=== PATIENT | male | born 1940 | race Caucasian/White ===

== ENCOUNTER 2018-02-14 12:00 | Inpatient (IN) | payer MEDICARE, OTHER ==
[2018-02-14] MEDS ORDERED: SODIUM CHLORIDE 0.9% 1,000 ML IV STA ×4 (12:21→21:45)
[2018-02-14] MEDS ORDERED: SODIUM CHLORIDE 0.9% 500 ML IV STA (12:21)
[2018-02-14 12:42] LABS: Basophils % (A) 0 %; Eosinophils # (A) 0.1 k/uL (0-0.7); Eosinophils % (A) 1 %; HCT 30.5 % (39.0-53.0); Lymphocytes # (A) 0.6 k/uL (1.0-4.8); Lymphocytes % (A) 5 %; MCH 30.6 pg (25.0-35.0); MCHC 33.7 g/dL (31.0-37.0); MCV 90.7 fL (80.0-100.0); Mean Platelet Volume 8.4; Monocytes # (A) 0.6 k/uL (0-1.0); Monocytes % (A) 5 %; Neutrophils # (A) 10.5 k/uL (1.3-7.7); Neutrophils % (A) 88 %; Platelet Count 142 k/uL (150-450); RBC 3.36 m/uL (4.30-5.90); RDW 13.9 % (11.5-15.5)
[2018-02-14 12:53] LABS: ALT 25 U/L (21-72); AST 26 U/L (17-59); Albumin 3.5 g/dL (3.5-5.0); Alkaline Phosphatase 86 U/L (38-126); Amylase 59 U/L (30-110); Anion Gap 18 mmol/L; Blood Urea Nitrogen 41 mg/dL (9-20); Calcium 8.7 mg/dL (8.4-10.2); Carbon Dioxide 17 mmol/L (22-30); Chloride 115 mmol/L (98-107); Glucose 138 mg/dL (74-99); Lipase 149 U/L (23-300); Potassium 4.4 mmol/L (3.5-5.1); Sodium 150 mmol/L (137-145); Total Bilirubin 0.5 mg/dL (0.2-1.3); Total Protein 6.9 g/dL (6.3-8.2)
[2018-02-14 12:57] LABS: HGB 10.3 gm/dL (13.0-17.5)
[2018-02-14 13:03] LABS: Creatine Kinase 98 U/L (55-170)
--- NOTE | 2018-02-14 13:14 | ED ---
Abdominal Pain HPI - General Chief Complaint: Abdominal Pain Stated Complaint: Abd pain Time Seen by Provider: 02/14/18 12:00 Source: EMS, RN notes reviewed, old records reviewed Mode of arrival: EMS Limitations: language barrier, altered mental status, physical limitation - History of Present Illness Initial Comments: This is a 77-year-old male from a local [facility] who was sent in for evaluation because of diminished breath sounds auscultation and pink frothy phlegm apparently per paramedics however patient did seem indicated that he had abdominal pain he is a poor historian he has a history of anxiety disorder major depression CVA expressive language disorder and hence is a poor historian MD Complaint: abdominal pain - Related Data Home Medications Medication Instructions Recorded Confirmed Ascorbic Acid [Vitamin C] 500 mg PO HS 06/15/15 02/14/18 Cholecalciferol [Vitamin D3] 3,000 unit PO HS 06/15/15 02/14/18 Vitamin B Complex 1 cap PO HS 06/15/15 02/14/18 Acetaminophen [Tylenol Arthritis] 650 mg PO Q6H PRN 02/14/18 02/14/18 Aspirin 81 mg PO DAILY 02/14/18 02/14/18 Atorvastatin [Lipitor] 40 mg PO HS 02/14/18 02/14/18 Hydrocortisone Cream 1 applic TOPICAL BID PRN 02/14/18 02/14/18 [Hydrocortisone 1% Cream] Loratadine [Claritin] 10 mg PO DAILY PRN 02/14/18 02/14/18 Miconazole Nitrate [Lotrimin AF 1 applic TOPICAL TID 02/14/18 02/14/18 Powder] Mirtazapine [Remeron] 15 mg PO HS 02/14/18 02/14/18 Phenyleph/Pramoxin/Glycr/W.pet 1 applic RECTAL DAILY PRN 02/14/18 02/14/18 [Preparation H Cream] Polyethylene Glycol 3350 [Miralax] 17 gm PO HS 02/14/18 02/14/18 Sertraline [Zoloft] 50 mg PO DAILY@0800 02/14/18 02/14/18 Allergies Allergy/AdvReac Type Severity Reaction Status Date / Time No Known Allergies Allergy Verified 02/14/18 12:19 Review of Systems ROS Statement: Those systems with pertinent positive or pertinent negative responses have been documented in the HPI. ROS Other: All systems not noted in ROS Statement are negative. Past Medical History Past Medical History: Eye Disorder, Hypertension, Neurologic Disorder Additional Past Medical History / Comment(s): unable to speak or comprehend, comprehends at 3rd grade level per family, vertigo History of Any Multi-Drug Resistant Organisms: None Reported Past Surgical History: No Surgical Hx Reported Additional Past Surgical History / Comment(s): cataract surgery Past Anesthesia/Blood Transfusion Reactions: No Reported Reaction Past Psychological History: No Psychological Hx Reported Smoking Status: Never smoker Past Alcohol Use History: None Reported Past Drug Use History: None Reported - Past Family History Sister(s) Family Medical History: Cancer Additional Family Medical History / Comment(s): lung cancer Brother(s) Family Medical History: Cancer Additional Family Medical History / Comment(s): esophageal cancer, cerebral palsy Father Family Medical History: Myocardial Infarction ([place]) General Exam - General Exam Comments Initial Comments: This is a well-developed well-nourished male in no acute distress Limitations: language barrier, altered mental status, physical limitation General appearance: alert, in no apparent distress Head exam: Present: atraumatic, normocephalic, normal inspection Eye exam: Present: normal appearance, PERRL, EOMI. Absent: scleral icterus, conjunctival injection, periorbital swelling ENT exam: Present: mucous membranes dry Neck exam: Present: normal inspection. Absent: tenderness, meningismus, lymphadenopathy Respiratory exam: Present: decreased breath sounds. Absent: respiratory distress, wheezes, rales, rhonchi, stridor Cardiovascular Exam: Present: regular rate, normal rhythm, normal heart sounds. Absent: systolic murmur, diastolic murmur, rubs, gallop, clicks GI/Abdominal exam: Present: soft, tenderness, normal bowel sounds. Absent: distended, guarding, rebound, rigid, bruit (Tenderness palpation and Gen. exam no rebound there does appear to be some voluntary guarding), pulsatile mass, hernia Rectal exam: Present: deferred exam: Present: normal inspection Extremities exam: Present: normal inspection, full ROM, normal capillary refill. Absent: tenderness, pedal edema, joint swelling, calf tenderness Back exam: Present: normal inspection Neurological exam: Present: alert, altered, CN II-XII intact Psychiatric exam: Present: normal affect, normal mood Skin exam: Present: warm, dry, intact, normal color. Absent: rash Course Vital Signs 02/14/18 02/14/18 12:08 15:13 Temperature 98.1 F Pulse Rate 86 68 Respiratory 18 20 Rate Blood Pressure 169/83 117/63 O2 Sat by Pulse 99 96 Oximetry Medical Decision Making - Medical Decision Making I did discuss findings with patient family as well as Dr. Tucker. Patient be admitted IV hydration IV antibiotics the elevated lactic acid is likely secondary to dehydration and onto actual infectious etiology. No source is found has been found - Lab Data Result diagrams: 02/14/18 12:24 02/14/18 12:24 Lab Results 02/14/18 02/14/18 02/14/18 Range/Units 12:24 12:24 12:24 WBC 12.0 H (3.8-10.6) k/uL RBC 3.36 L (4.30-5.90) m/uL Hgb 10.3 L D (13.0-17.5) gm/dL Hct 30.5 L (39.0-53.0) % MCV 90.7 (80.0-100.0) fL MCH 30.6 (25.0-35.0) pg MCHC 33.7 (31.0-37.0) g/dL RDW 13.9 (11.5-15.5) % Plt Count 142 L (150-450) k/uL Neutrophils % 88 % Lymphocytes % 5 % Monocytes % 5 % Eosinophils % 1 % Basophils % 0 % Neutrophils # 10.5 H (1.3-7.7) k/uL Lymphocytes # 0.6 L (1.0-4.8) k/uL Monocytes # 0.6 (0-1.0) k/uL Eosinophils # 0.1 (0-0.7) k/uL Basophils # 0.0 (0-0.2) k/uL Sodium 150 H (137-145) mmol/L Potassium 4.4 (3.5-5.1) mmol/L Chloride 115 H (98-107) mmol/L Carbon Dioxide 17 L (22-30) mmol/L Anion Gap 18 mmol/L BUN 41 H (9-20) mg/dL Creatinine 0.69 (0.66-1.25) mg/dL Est GFR (CKD-EPI)AfAm >90 (>60 ml/min/1.73 sqM) Est GFR (CKD-EPI)NonAf >90 (>60 ml/min/1.73 sqM) Glucose 138 H (74-99) mg/dL Lactic Ac Sepsis Rflx Plasma Lactic Acid Ulysses (0.7-2.0) mmol/L Calcium 8.7 (8.4-10.2) mg/dL Total Bilirubin 0.5 (0.2-1.3) mg/dL AST 26 (17-59) U/L ALT 25 (21-72) U/L Alkaline Phosphatase 86 (38-126) U/L Total Creatine Kinase 98 (55-170) U/L CK-MB (CK-2) 0.9 (0.0-2.4) ng/mL CK-MB (CK-2) Rel Index 0.9 Troponin I <0.012 (0.000-0.034) ng/mL NT-Pro-B Natriuret Pep pg/mL Total Protein 6.9 (6.3-8.2) g/dL Albumin 3.5 (3.5-5.0) g/dL Amylase 59 (30-110) U/L Lipase 149 (23-300) U/L Urine Color Urine Appearance (Clear) Urine pH (5.0-8.0) Ur Specific [place] (1.001-1.035) Urine Protein (Negative) Urine Glucose (UA) (Negative) Urine Ketones (Negative) Urine Blood (Negative) Urine Nitrite (Negative) Urine Bilirubin (Negative) Urine Urobilinogen (<2.0) mg/dL Ur Leukocyte Esterase (Negative) 02/14/18 02/14/18 02/14/18 Range/Units 12:24 12:24 13:03 WBC (3.8-10.6) k/uL RBC (4.30-5.90) m/uL Hgb (13.0-17.5) gm/dL Hct (39.0-53.0) % MCV (80.0-100.0) fL MCH (25.0-35.0) pg MCHC (31.0-37.0) g/dL RDW (11.5-15.5) % Plt Count (150-450) k/uL Neutrophils % % Lymphocytes % % Monocytes % % Eosinophils % % Basophils % % Neutrophils # (1.3-7.7) k/uL Lymphocytes # (1.0-4.8) k/uL Monocytes # (0-1.0) k/uL Eosinophils # (0-0.7) k/uL Basophils # (0-0.2) k/uL Sodium (137-145) mmol/L Potassium (3.5-5.1) mmol/L Chloride (98-107) mmol/L Carbon Dioxide (22-30) mmol/L Anion Gap mmol/L BUN (9-20) mg/dL Creatinine (0.66-1.25) mg/dL Est GFR (CKD-EPI)AfAm (>60 ml/min/1.73 sqM) Est GFR (CKD-EPI)NonAf (>60 ml/min/1.73 sqM) Glucose (74-99) mg/dL Lactic Ac Sepsis Rflx Y Plasma Lactic Acid Ulysses 4.6 H* (0.7-2.0) mmol/L Calcium (8.4-10.2) mg/dL Total Bilirubin (0.2-1.3) mg/dL AST (17-59) U/L ALT (21-72) U/L Alkaline Phosphatase (38-126) U/L Total Creatine Kinase (55-170) U/L CK-MB (CK-2) (0.0-2.4) ng/mL CK-MB (CK-2) Rel Index Troponin I (0.000-0.034) ng/mL NT-Pro-B Natriuret Pep 154 pg/mL Total Protein (6.3-8.2) g/dL Albumin (3.5-5.0) g/dL Amylase (30-110) U/L Lipase (23-300) U/L Urine Color Urine Appearance (Clear) Urine pH (5.0-8.0) Ur Specific [place] (1.001-1.035) Urine Protein (Negative) Urine Glucose (UA) (Negative) Urine Ketones (Negative) Urine Blood (Negative) Urine Nitrite (Negative) Urine Bilirubin (Negative) Urine Urobilinogen (<2.0) mg/dL Ur Leukocyte Esterase (Negative) 02/14/18 Range/Units 13:46 WBC (3.8-10.6) k/uL RBC (4.30-5.90) m/uL Hgb (13.0-17.5) gm/dL Hct (39.0-53.0) % MCV (80.0-100.0) fL MCH (25.0-35.0) pg MCHC (31.0-37.0) g/dL RDW (11.5-15.5) % Plt Count (150-450) k/uL Neutrophils % % Lymphocytes % % Monocytes % % Eosinophils % % Basophils % % Neutrophils # (1.3-7.7) k/uL Lymphocytes # (1.0-4.8) k/uL Monocytes # (0-1.0) k/uL Eosinophils # (0-0.7) k/uL Basophils # (0-0.2) k/uL Sodium (137-145) mmol/L Potassium (3.5-5.1) mmol/L Chloride (98-107) mmol/L Carbon Dioxide (22-30) mmol/L Anion Gap mmol/L BUN (9-20) mg/dL Creatinine (0.66-1.25) mg/dL Est GFR (CKD-EPI)AfAm (>60 ml/min/1.73 sqM) Est GFR (CKD-EPI)NonAf (>60 ml/min/1.73 sqM) Glucose (74-99) mg/dL Lactic Ac Sepsis Rflx Plasma Lactic Acid Ulysses (0.7-2.0) mmol/L Calcium (8.4-10.2) mg/dL Total Bilirubin (0.2-1.3) mg/dL AST (17-59) U/L ALT (21-72) U/L Alkaline Phosphatase (38-126) U/L Total Creatine Kinase (55-170) U/L CK-MB (CK-2) (0.0-2.4) ng/mL CK-MB (CK-2) Rel Index Troponin I (0.000-0.034) ng/mL NT-Pro-B Natriuret Pep pg/mL Total Protein (6.3-8.2) g/dL Albumin (3.5-5.0) g/dL Amylase (30-110) U/L Lipase (23-300) U/L Urine Color Yellow Urine Appearance Clear (Clear) Urine pH 5.5 (5.0-8.0) Ur Specific [place] 1.020 (1.001-1.035) Urine Protein Negative (Negative) Urine Glucose (UA) Negative (Negative) Urine Ketones 1+ H (Negative) Urine Blood Negative (Negative) Urine Nitrite Negative (Negative) Urine Bilirubin Negative (Negative) Urine Urobilinogen <2.0 (<2.0) mg/dL Ur Leukocyte Esterase Negative (Negative) - Radiology Data Radiology results: report reviewed (I did review the imaging and reports no acute findings.), image reviewed Disposition Clinical Impression: Abdominal pain, Dehydration, Constipation, Lactic acidosis, Hypernatremia Disposition: ADMITTED IP TO THIS [facility] Condition: Stable Referrals: Layo Powell DO [Primary Care Provider] - 1-2 days
[2018-02-14 13:16] LABS: Creatine Kinase MB 0.9 ng/mL (0.0-2.4); Troponin I <0.012 ng/mL (0.000-0.034)
--- NOTE | 2018-02-14 13:24 | XR ---
EXAMINATION TYPE: XR chest 2V DATE OF EXAM: 02/14/2018 HISTORY: abdominal pain. REFERENCE: Previous study dated 09/23/2015. FINDINGS: The lungs are clear. Pleural space are clear. The heart is not enlarged. IMPRESSION: NO ACUTE INTRATHORACIC ABNORMALITY.
--- NOTE | 2018-02-14 13:25 | XR ---
EXAMINATION TYPE: XR KUB , 2 VIEWS DATE OF EXAM ORDERED: 02/14/2018 HISTORY: abdominal pain. COMPARISON: Previous study dated 09/23/2015. FINDINGS: The abdominal gas pattern is within normal limits without evidence of obstruction or free a ir. No unusual calcifications are seen.. IMPRESSION: NO ACUTE INTRA-ABDOMINAL ABNORMALITY
[2018-02-14] MEDS ORDERED: RX INFO: IV CONTRAST WAS GIVEN 1 EACH MISC MISCELLANE PRN (14:00)
[2018-02-14 14:04] LABS: Appearance,Urine Clear (Clear); Bilirubin,Urine Negative (Negative); Blood,Urine Negative (Negative); Color,Urine Yellow; Glucose,Urine (UA) Negative (Negative); Ketones,Urine 1+ (Negative); Leukocyte Esterase,Urine Negative (Negative); Nitrite,Urine Negative (Negative); PH, Urine 5.5 (5.0-8.0); Protein,Urine Negative (Negative); Urobilinogen,Urine <2.0 mg/dL (<2.0)
--- NOTE | 2018-02-14 14:59 | CT ---
EXAMINATION TYPE: CT abdomen pelvis w con DATE OF EXAM: 02/14/2018 COMPARISON: NONE HISTORY: Generalized pain and tenderness CT DLP: 1190.1 mGycm Automated exposure control for dose reduction was used. TECHNIQUE: Helical acquisition of images from the lung bases through the pelvis have been completed. CONTRAST: Performed without Oral Contrast and with IV Contrast, patient injected with 100 mL of Isovue 300. FINDINGS: There is a hiatal hernia present. LUNG BASES: Interstitial changes at the lung bases. AORTA: No significant abnormality is appreciated. LIVER/GB: Liver shows low attenuation possibly due to hepatic steatosis, gallbladder is normal PANCREAS: No significant abnormality is seen. SPLEEN: No significant abnormality is seen. ADRENALS: No significant abnormality is seen. KIDNEYS: Some parapelvic cysts are noted on the left. There is no hydronephrosis or ureteral calculus evident. REPRODUCTIVE ORGANS: Prostate calcifications are noted. BOWEL: Diverticular changes associated with the colon. There is a right inguinal hernia which contai ns small bowel loops. Small umbilical hernia contains fat. Rectum is distended with fecal material, c orrelate for impaction. FREE AIR: No Free Air visible. ASCITES: None visible. PELVIC ADENOPATHY: None visualized. RETROPERITONEAL ADENOPATHY: No Retroperitoneal Adenopathy visible. URINARY BLADDER: No significant abnormality is seen. OSSEOUS STRUCTURES: Anterior wedge compression deformity present at L4. Multilevel degenerative disc changes in the visualized spine. Sclerotic focus previously noted and L2 vertebral body is no longer seen possibly due to treated disease. IMPRESSION: INTERVAL DEVELOPMENT RIGHT INGUINAL HERNIA CONTAINING SMALL BOWEL LOOPS WITHOUT EVIDENCE OF OBSTRUCTI ON. Correlate for possible fecal impaction. Diverticulosis.
[2018-02-14] MEDS ORDERED: cefTRIAXone IN SWFI 1,000 MG/10 ML SYRINGE IVP STA (15:14)
[2018-02-14] MEDS ORDERED: NALOXONE 0.4 MG/ML 1 ML VIAL IV PRN (16:19)
[2018-02-14] MEDS ORDERED: BENZOCAINE 20% HEMORRHOIDAL OINT 28GM RECTAL PRN (16:22)
[2018-02-14] MEDS ORDERED: HYDROCORTISONE 1% CREAM 30 GM TUBE TOPICAL PRN (16:22)
[2018-02-14] MEDS ORDERED: LORATADINE 10 MG TAB PO PRN (16:22)
[2018-02-14] MEDS ORDERED: NA PHOS,M-B/NA PHOS,DI-BA 133 ML ENEMA RECTAL STA (16:28)
[2018-02-14] MEDS ORDERED: B COMPLEX-VIT C-VIT E-ZINC 1 EACH TAB PO SCH (21:00)
[2018-02-14] MEDS ORDERED: ASCORBIC ACID 500 MG TAB PO SCH (21:00)
[2018-02-14] MEDS ORDERED: CHOLECALCIFEROL 1,000 UNIT TAB PO SCH (21:00)
[2018-02-14] MEDS ORDERED: POLYETHYLENE GLYCOL 3350 17 GM POWD.PACK PO SCH (21:00)
[2018-02-14] MEDS: ATORVASTATIN 40 MG TAB PO SCH (22:05)
[2018-02-14] MEDS: MIRTAZAPINE 15 MG TAB PO SCH (22:05)
[2018-02-14 22:10] LABS: HCT 23.7 % (39.0-53.0); MCH 29.3 pg (25.0-35.0); MCHC 31.8 g/dL (31.0-37.0); MCV 91.9 fL (80.0-100.0); Mean Platelet Volume 9.4; Platelet Count 182 k/uL (150-450); RBC 2.58 m/uL (4.30-5.90); RDW 14.5 % (11.5-15.5); WBC 10.6 k/uL (3.8-10.6)
[2018-02-14 22:15] LABS: HGB 7.5 gm/dL (13.0-17.5)
[2018-02-14 23:30] VITALS: BMI 30.4
[2018-02-15] MEDS: SODIUM CHLORIDE 0.9% 1,000 ML IV SCH ×3 (00:21→12:13)
[2018-02-15] MEDS ORDERED: ONDANSETRON 4 MG/2 ML VIAL IVP PRN (00:25)
[2018-02-15] MEDS: MICONAZOLE NITRATE 2% CREAM 14 GM TUBE TOPICAL SCH ×4 (00:54→22:18)
[2018-02-15 04:27] LABS: ALT 24 U/L (21-72); AST 22 U/L (17-59); Albumin 2.4 g/dL (3.5-5.0); Alkaline Phosphatase 60 U/L (38-126); Anion Gap 13 mmol/L; Blood Urea Nitrogen 31 mg/dL (9-20); Calcium 7.6 mg/dL (8.4-10.2); Carbon Dioxide 17 mmol/L (22-30); Glucose 171 mg/dL (74-99); Potassium 3.7 mmol/L (3.5-5.1); Sodium 152 mmol/L (137-145); Total Bilirubin 0.3 mg/dL (0.2-1.3); Total Protein 5.1 g/dL (6.3-8.2)
[2018-02-15 04:30] LABS: Basophils % (A) 0 %; Eosinophils % (A) 0 %; Lymphocytes # (A) 0.9 k/uL (1.0-4.8); Lymphocytes % (A) 11 %; MCH 30.4 pg (25.0-35.0); MCHC 33.2 g/dL (31.0-37.0); MCV 91.8 fL (80.0-100.0); Mean Platelet Volume 8.1; Monocytes # (A) 0.5 k/uL (0-1.0); Monocytes % (A) 6 %; Neutrophils # (A) 6.7 k/uL (1.3-7.7); Neutrophils % (A) 82 %; Platelet Count 176 k/uL (150-450); RDW 14.7 % (11.5-15.5); WBC 8.1 k/uL (3.8-10.6)
[2018-02-15 04:33] LABS: Chloride 122 mmol/L (98-107); HCT 18.3 % (39.0-53.0); HGB 6.1 gm/dL (13.0-17.5)
[2018-02-15 04:36] LABS: Glucose,Whole Blood 208 mg/dL (75-99)
[2018-02-15 05:26] LABS: INR 1.3 (<1.2); Prothrombin Time 12.7 sec (9.0-12.0)
[2018-02-15 05:27] LABS: Partial Thromboplastin Time 22.5 sec (22.0-30.0)
[2018-02-15 05:34] LABS: Magnesium 2.2 mg/dL (1.6-2.3); Phosphorus 2.8 mg/dL (2.5-4.5)
--- NOTE | 2018-02-15 07:04 | XR ---
EXAMINATION TYPE: XR chest 1V DATE OF EXAM: 02/15/2018 HISTORY: Short of breath. REFERENCE: Previous study dated 02/14/2018. FINDINGS: The heart is mildly prominent. The lungs are clear. Pleural spaces are clear. IMPRESSION: MILD CARDIOMEGALY.
--- NOTE | 2018-02-15 07:25 | P.CNPUL ---
History of Present Illness Consult date: 02/15/18 Reason for consult: other Chief complaint: GI bleed History of present illness: Consult dated 02/15/2018 77-year-old male who presented to the emergency room from a local [facility] because of diminished breath sounds on auscultation and think probably phlegm production. In addition, they noted in the emergency room and he had abdominal pain and apparently he was quite anemic. He was seen and evaluated emergency room and was admitted with a diagnosis of GI bleed. I was called by the nurses because of the fact that he needed come to the ICU. The patient's a very poor historian as he has a history of anxiety disorder major depression CVA and severe expressive aphasia. The patient is apparently a no code patient. The patient's hemoglobin was less than 7. Apparently he is to receive some packed red blood cells. He is on O2 at 3 L by nasal cannula and getting a saline IV at 1 25 mL an hour. He has received no blood as yet. He had maroon stools on multiple occasions in the emergency department. He has a history of hypertension CVA vertigo expressive aphasia anxiety hyperlipidemia ALLERGIES in general medical debility. He does appear comfortable today. He does have some pain on palpation in the abdominal area particularly in the midline of the abdomen. Review of Systems ROS unobtainable: due to mental status 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, comprehends at 3rd grade level per family, vertigo History of Any Multi-Drug Resistant Organisms: None Reported Past Surgical History: No Surgical Hx Reported Additional Past Surgical History / Comment(s): cataract surgery Past Anesthesia/Blood Transfusion Reactions: No Reported Reaction Smoking Status: Never smoker - Past Family History Sister(s) Family Medical History: Cancer Additional Family Medical History / Comment(s): lung cancer Brother(s) Family Medical History: Cancer Additional Family Medical History / Comment(s): esophageal cancer, cerebral palsy Father Family Medical History: Myocardial Infarction ([place]) Medications and Allergies Home Medications Medication Instructions Recorded Confirmed Type Ascorbic Acid [Vitamin C] 500 mg PO HS 06/15/15 02/14/18 History Cholecalciferol [Vitamin D3] 3,000 unit PO HS 06/15/15 02/14/18 History Vitamin B Complex 1 cap PO HS 06/15/15 02/14/18 History Acetaminophen [Tylenol Arthritis] 650 mg PO Q6H PRN 02/14/18 02/14/18 History Aspirin 81 mg PO DAILY 02/14/18 02/14/18 History Atorvastatin [Lipitor] 40 mg PO HS 02/14/18 02/14/18 History Hydrocortisone Cream 1 applic TOPICAL BID PRN 02/14/18 02/14/18 History [Hydrocortisone 1% Cream] Loratadine [Claritin] 10 mg PO DAILY PRN 02/14/18 02/14/18 History Miconazole Nitrate [Lotrimin AF 1 applic TOPICAL TID 02/14/18 02/14/18 History Powder] Mirtazapine [Remeron] 15 mg PO HS 02/14/18 02/14/18 History Phenyleph/Pramoxin/Glycr/W.pet 1 applic RECTAL DAILY PRN 02/14/18 02/14/18 History [Preparation H Cream] Polyethylene Glycol 3350 [Miralax] 17 gm PO HS 02/14/18 02/14/18 History Sertraline [Zoloft] 50 mg PO DAILY@0800 02/14/18 02/14/18 History Allergies Allergy/AdvReac Type Severity Reaction Status Date / Time No Known Allergies Allergy Verified 02/14/18 12:19 Physical Exam Osteopathic Statement: *. No significant issues noted on an osteopathic structural exam other than those noted in the History and Physical/Consult. Vitals: Vital Signs Temp Pulse Pulse Resp BP BP Pulse Ox 02/15/18 06:00 98.5 F 125 H 18 124/85 99 02/15/18 04:15 112 H 128/67 100 02/15/18 04:07 97 02/15/18 03:54 107 H 16 111/62 98 02/15/18 03:35 99.3 F 109 H 16 135/50 96 02/14/18 23:00 100.5 F H 92 16 123/94 97 02/14/18 22:12 97.5 F L 78 20 133/68 96 02/14/18 17:00 91 18 117/52 96 02/14/18 15:13 68 20 117/63 96 02/14/18 12:08 98.1 F 86 18 169/83 99 Intake and Output 02/14/18 02/15/18 02/15/18 22:59 06:59 14:59 Intake Total 1999 125 Output Total 1350 Balance 2000 -1225 Intake: Amount of Fluid Infused ( 2000 ml) Intake, IV Titration 125 Amount Sodium Chloride 0.9% 1, 125 000 ml @ 125 mls/hr IV . Q8H STA Rx#:[id number] Output: Urine 1350 Other: # Voids 1 # Bowel Movements 1 Weight 80.467 kg No acute distress, does not respond to verbal stimuli. The patient's pale. HEENT examination is grossly unremarkable. Mucous membranes are moist. No oral lesions. Neck supple. Full range of motion. No adenopathy thyromegaly or neck vein distention. Cardiovascular examination reveals regular rhythm rate. S1-S2 normal. No S3 or S4. No discernible murmur noted. Lungs reveal clear breath sounds. Her sounds are equal bilaterally. No adventitious lung sounds including wheezes rhonchi or crackles. Abdomen soft bowel sounds are heard. There is tenderness on palpation. No masses. Extremities are intact. No cyanosis clubbing or edema. Skin is without rash or lesion. Skin is pale. Neurologic examination is very difficult to assess because of patient's mental status. Results - Laboratory Findings CBC and BMP: 02/15/18 03:57 02/15/18 03:57 PT/INR, D-dimer PT 12.7 sec (9.0-12.0) H 02/15/18 03:45 INR 1.3 (<1.2) H 02/15/18 03:45 D-Dimer 0.30 mg/L FEU (<0.60) 02/14/18 17:19 Abnormal lab findings: Abnormal Labs 02/14/18 02/14/18 02/14/18 12:24 12:24 12:24 WBC 12.0 H RBC 3.36 L Hgb 10.3 L D Hct 30.5 L Plt Count 142 L Neutrophils # 10.5 H Lymphocytes # 0.6 L PT INR Sodium 150 H Chloride 115 H Carbon Dioxide 17 L BUN 41 H Glucose 138 H POC Glucose (mg/dL) Plasma Lactic Acid Ulysses 4.6 H* Calcium Total Protein Albumin Urine Ketones Crossmatch 02/14/18 02/14/18 02/15/18 13:46 21:59 03:45 WBC RBC 2.58 L Hgb 7.5 L D Hct 23.7 L Plt Count Neutrophils # Lymphocytes # PT 12.7 H INR 1.3 H Sodium Chloride Carbon Dioxide BUN Glucose POC Glucose (mg/dL) Plasma Lactic Acid Ulysses Calcium Total Protein Albumin Urine Ketones 1+ H Crossmatch 02/15/18 02/15/18 02/15/18 03:57 03:57 03:57 WBC RBC 2.00 L Hgb 6.1 L* Hct 18.3 L* Plt Count Neutrophils # Lymphocytes # 0.9 L PT INR Sodium 152 H Chloride 122 H* Carbon Dioxide 17 L BUN 31 H Glucose 171 H POC Glucose (mg/dL) Plasma Lactic Acid Ulysses Calcium 7.6 L Total Protein 5.1 L Albumin 2.4 L Urine Ketones Crossmatch See Detail 02/15/18 04:34 WBC RBC Hgb Hct Plt Count Neutrophils # Lymphocytes # PT INR Sodium Chloride Carbon Dioxide BUN Glucose POC Glucose (mg/dL) 208 H Plasma Lactic Acid Ulysses Calcium Total Protein Albumin Urine Ketones Crossmatch - Diagnostic Findings Chest x-ray: image reviewed (Labs x-rays a medications are reviewed.) Assessment and Plan Assessment: Assessment GI bleed with resultant anemia History of hyperlipidemia ALLERGIC rhinitis History of previous CVA with expressive aphasia Anxiety and depression History of cataract surgery. Lifelong nonsmoker Plan: Plan dated 02/15/2018 The patient's hemoglobin this morning is 6.1 with hematocrit of 18.3. Further, normal. White count is normal. His PT is 12.7 INR 1.3. Sodium 152 potassium 3.7 chloride 122 CO2 17 and creatinine were 31 and 0.8 suggesting prerenal azotemia and dehydration. His actual hemoglobin was probably much lower than 6.1 given his prerenal azotemia. The patient's chest x-ray shows only cardiomegaly without acute intrathoracic process. The CT of the abdomen and pelvis shows a right inguinal hernia. Labs x-rays a medications are all reviewed. The patient should receive a couple units of blood. We will also change his fluids from 0.9 at 125 to D5W at 125. Time with Patient: Greater than 30
[2018-02-15] MEDS: PANTOPRAZOLE 40 MG/10 ML VIAL IVP SCH ×2 (07:50→21:45)
[2018-02-15] MEDS: SERTRALINE 50 MG TAB PO SCH (07:55)
[2018-02-15] MEDS ORDERED: ASPIRIN 81 MG PO SCH (09:00)
[2018-02-15] MEDS ORDERED: PROPOFOL 10 MG/ML 20 ML VIAL IV ONE (10:13)
[2018-02-15 10:18] LABS: Appearance,Urine Clear (Clear); Bilirubin,Urine Negative (Negative); Blood,Urine Negative (Negative); Color,Urine Light Yellow; Glucose,Urine (UA) Negative (Negative); Ketones,Urine Negative (Negative); Leukocyte Esterase,Urine Negative (Negative); Nitrite,Urine Negative (Negative); Protein,Urine Negative (Negative); Specific Gravity,Urine 1.021 (1.001-1.035); Urobilinogen,Urine <2.0 mg/dL (<2.0)
[2018-02-15] MEDS ORDERED: EPINEPHrine 10 ML SYRINGE (0.1 MG/ML) MISCELLANE ONE (10:32)
--- NOTE | 2018-02-15 10:36 | P.PCN ---
Date of Procedure: 02/15/18 Procedure(s) Performed: BRIEF HISTORY: Patient is a 77-year-old, pleasant, white male, admitted to the intensive care unit with acute GI bleed. He presented to the emergency room with abdominal pain nausea vomiting and subsequent evaluate the fluid had massive GI bleed with black and darker stools. Hemoglobin from 10-6.0 g/dL because of clinical suspicion for upper GI source of bleeding is scheduled for an upper endoscopy the bedside an emergency basis. PROCEDURE PERFORMED: Esophagogastroduodenoscopy with injection epinephrine and cautery PREOPERATIVE DIAGNOSIS: Acute GI bleed IV sedation per anesthesia. PROCEDURE: After informed consent was obtained, the patient was brought into the endoscopy unit. IV sedation was administered by Anesthesia under continuous monitoring. Initially the Olympus GIF-140 video endoscope was inserted into the mouth. Esophagus intubated without any difficulty. It was gradually advanced into the stomach and duodenum and carefully examined. The bulb appeared normal. In the second part of the duodenum there was a duodenal narrowing identified and the CBD area there was an ulceration measuring about 1 cm in size with the red protuberance which appears to be the source of recent bleed but no active bleeding noted. At this time I proceeded with injection with 1 in 10,000 epinephrine and total of 5 mL was injected. Following this cautery probe was used and cautery was performed with hemostasis.. The scope at this time was withdrawn to the stomach, adequately insufflated with air, and upon careful examination, mucosa of the antrum, body, cardia and the fundus appeared normal. The scope was then withdrawn into the esophagus. Small hiatal hernia noted. The GE junction was located at 39 cm from the incisors. The esophagus appeared normal. There were no erosions or ulcerations seen and the patient tolerated the procedure well. IMPRESSION: 1. Superficial duodenal ulcer with a red protuberance in the second part of the duodenum which appears to be the source of bleed status post injection epinephrine and cautery as described above 2. Early duodenal stricture RECOMMENDATIONS: The findings of this examination were discussed with the patient. He'll be started on clear liquid diet. Monitor in intensive care unit. CBC every 6 hours. Continue IV Protonix 40 minute grams every 12 hours..
--- NOTE | 2018-02-15 11:13 | CONS ---
CONSULTATION DATE OF SERVICE: February 15, 2018. REASON FOR CONSULTATION: Acute GI bleed. HISTORY OF PRESENT ILLNESS: The patient is a 77-year-old white male who was brought from the [facility] because of some diminished breath sounds and abdominal pain as well as anemia. Apparently in the emergency room, he had an episode of vomiting with pinkish liquids. He was admitted to the 4th floor with the above symptoms and while there, he had significant episodes of dark colored stools and became hypertensive and hence he was subsequently transferred to the intensive care unit. He dropped his hemoglobin from 10 to 6.1 g/dL in less than a 24 hour. Presently in ICU on a second unit of blood transfusion. He did not have any further bleeding episodes since being in the hospital. The patient is a very poor historian and has expressive aphasia from previous CVA and hence most of the history was obtained from the nursing staff. PAST MEDICAL HISTORY: CVA with expressive aphasia, hypertension, degenerative joint disease. Hyperlipidemia. PAST SURGICAL HISTORY: Cataract surgery. MEDICATIONS: At home include Tylenol Arthritis, vitamin B, vitamin D3, Claritin, Remeron, Zoloft, MiraLAX. ALLERGIES: None. FAMILY HISTORY: Mother had some esophageal cancer. Sister has lung cancer. REVIEW OF SYSTEMS: Could not be obtained as patient has expressive aphasia. PHYSICAL EXAMINATION: He appears comfortable. No apparent distress. VITAL SIGNS: Stable. Blood pressure is 130/86, pulse rate 90, temperature 98.5. HEENT examination unremarkable. Conjunctivae pink. Sclerae anicteric. Oral cavity no lesions. Neck no jugular venous distention or lymph node enlargement. Chest clear to auscultation. HEART: Regular rate and rhythm. ABDOMEN: Soft. Bowel sounds are positive. Extremities: No pedal edema. Skin no rashes. Neuro: He is awake, not oriented to name and place. LAB: From this yesterday morning hemoglobin of 10.3, this morning is 6.1 g/dL. BUN is 31, creatinine 0.8. Platelets and WBC are within normal limits. PT/INR is within normal limits. IMPRESSION: 1. Acute gastrointestinal bleed, possibly upper in etiology. The patient had an episode of pinkish emesis followed by significant amount of dark colored stools resulting in hypertension and transferred to intensive care unit, dropped hemoglobin from 10 to 6.1 g/dL, presently receiving 2 units of blood transfusion. Most likely we are dealing with an upper gastrointestinal source of bleeding. 2. History of cerebrovascular accident, expressive aphasia. RECOMMENDATIONS: 1. Start on IV Protonix 40 mg q.12 hours. 2. Keep him n.p.o. 3. Proceed with an upper endoscopy today. We will obtain consent from the legal guardian from his sister who is the guardian. 4. In the meantime. We will monitor CBC every 6 hours and transfuse as needed. 5. Thank you for this consultation. MMODL / IJN: [id number] /
--- NOTE | 2018-02-15 12:35 | P.GSCN ---
History of Present Illness Consult date: 02/15/18 Reason for Consult: GI bleed History of present illness: Patient came to the hospital with shortness of breath and abdominal pain. He is found to be anemic. He had emesis in the ER that was thought to be possibly bloody. He had dark-colored stools. He was hypotensive. He underwent an upper endoscopy this morning which revealed a duodenal ulcer. This appeared to be the source of bleeding. The patient is a phasic. Unable to provide any history. Review of Systems ROS unobtainable: due to mental status 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, comprehends at 3rd grade level per family, vertigo History of Any Multi-Drug Resistant Organisms: None Reported Past Surgical History: No Surgical Hx Reported Additional Past Surgical History / Comment(s): cataract surgery Past Anesthesia/Blood Transfusion Reactions: No Reported Reaction Smoking Status: Never smoker - Past Family History Sister(s) Family Medical History: Cancer Additional Family Medical History / Comment(s): lung cancer Brother(s) Family Medical History: Cancer Additional Family Medical History / Comment(s): esophageal cancer, cerebral palsy Father Family Medical History: Myocardial Infarction ([place]) Medications and Allergies Home Medications Medication Instructions Recorded Confirmed Type Ascorbic Acid [Vitamin C] 500 mg PO HS 06/15/15 02/14/18 History Cholecalciferol [Vitamin D3] 3,000 unit PO HS 06/15/15 02/14/18 History Vitamin B Complex 1 cap PO HS 06/15/15 02/14/18 History Acetaminophen [Tylenol Arthritis] 650 mg PO Q6H PRN 02/14/18 02/14/18 History Aspirin 81 mg PO DAILY 02/14/18 02/14/18 History Atorvastatin [Lipitor] 40 mg PO HS 02/14/18 02/14/18 History Hydrocortisone Cream 1 applic TOPICAL BID PRN 02/14/18 02/14/18 History [Hydrocortisone 1% Cream] Loratadine [Claritin] 10 mg PO DAILY PRN 02/14/18 02/14/18 History Miconazole Nitrate [Lotrimin AF 1 applic TOPICAL TID 02/14/18 02/14/18 History Powder] Mirtazapine [Remeron] 15 mg PO HS 02/14/18 02/14/18 History Phenyleph/Pramoxin/Glycr/W.pet 1 applic RECTAL DAILY PRN 02/14/18 02/14/18 History [Preparation H Cream] Polyethylene Glycol 3350 [Miralax] 17 gm PO HS 02/14/18 02/14/18 History Sertraline [Zoloft] 50 mg PO DAILY@0800 02/14/18 02/14/18 History Allergies Allergy/AdvReac Type Severity Reaction Status Date / Time No Known Allergies Allergy Verified 02/14/18 12:19 Surgical - Exam Vital Signs Temp Pulse Resp BP Pulse Ox 98.1 F 86 18 169/83 99 02/14/18 12:08 02/14/18 12:08 02/14/18 12:08 02/14/18 12:08 02/14/18 12:08 Physical exam: General: Well-developed, well-nourished HEENT: Normocephalic, sclerae nonicteric Abdomen: Nontender, nondistended, right inguinal hernia Extremities: No edema Neuro: Alert and oriented Results - Labs 02/15/18 03:57 02/15/18 03:57 Abnormal Lab Results - Last 24 Hours (Table) 02/14/18 02/14/18 02/14/18 Range/Units 12:24 12:24 12:24 WBC 12.0 H (3.8-10.6) k/uL RBC 3.36 L (4.30-5.90) m/uL Hgb 10.3 L D (13.0-17.5) gm/dL Hct 30.5 L (39.0-53.0) % Plt Count 142 L (150-450) k/uL Neutrophils # 10.5 H (1.3-7.7) k/uL Lymphocytes # 0.6 L (1.0-4.8) k/uL PT (9.0-12.0) sec INR (<1.2) Sodium 150 H (137-145) mmol/L Chloride 115 H (98-107) mmol/L Carbon Dioxide 17 L (22-30) mmol/L BUN 41 H (9-20) mg/dL Glucose 138 H (74-99) mg/dL POC Glucose (mg/dL) (75-99) mg/dL Plasma Lactic Acid Ulysses 4.6 H* (0.7-2.0) mmol/L Calcium (8.4-10.2) mg/dL Total Protein (6.3-8.2) g/dL Albumin (3.5-5.0) g/dL Urine Ketones (Negative) Crossmatch 02/14/18 02/14/18 02/15/18 Range/Units 13:46 21:59 03:45 WBC (3.8-10.6) k/uL RBC 2.58 L (4.30-5.90) m/uL Hgb 7.5 L D (13.0-17.5) gm/dL Hct 23.7 L (39.0-53.0) % Plt Count (150-450) k/uL Neutrophils # (1.3-7.7) k/uL Lymphocytes # (1.0-4.8) k/uL PT 12.7 H (9.0-12.0) sec INR 1.3 H (<1.2) Sodium (137-145) mmol/L Chloride (98-107) mmol/L Carbon Dioxide (22-30) mmol/L BUN (9-20) mg/dL Glucose (74-99) mg/dL POC Glucose (mg/dL) (75-99) mg/dL Plasma Lactic Acid Ulysses (0.7-2.0) mmol/L Calcium (8.4-10.2) mg/dL Total Protein (6.3-8.2) g/dL Albumin (3.5-5.0) g/dL Urine Ketones 1+ H (Negative) Crossmatch 02/15/18 02/15/18 02/15/18 Range/Units 03:57 03:57 03:57 WBC (3.8-10.6) k/uL RBC 2.00 L (4.30-5.90) m/uL Hgb 6.1 L* (13.0-17.5) gm/dL Hct 18.3 L* (39.0-53.0) % Plt Count (150-450) k/uL Neutrophils # (1.3-7.7) k/uL Lymphocytes # 0.9 L (1.0-4.8) k/uL PT (9.0-12.0) sec INR (<1.2) Sodium 152 H (137-145) mmol/L Chloride 122 H* (98-107) mmol/L Carbon Dioxide 17 L (22-30) mmol/L BUN 31 H (9-20) mg/dL Glucose 171 H (74-99) mg/dL POC Glucose (mg/dL) (75-99) mg/dL Plasma Lactic Acid Ulysses (0.7-2.0) mmol/L Calcium 7.6 L (8.4-10.2) mg/dL Total Protein 5.1 L (6.3-8.2) g/dL Albumin 2.4 L (3.5-5.0) g/dL Urine Ketones (Negative) Crossmatch See Detail 02/15/18 Range/Units 04:34 WBC (3.8-10.6) k/uL RBC (4.30-5.90) m/uL Hgb (13.0-17.5) gm/dL Hct (39.0-53.0) % Plt Count (150-450) k/uL Neutrophils # (1.3-7.7) k/uL Lymphocytes # (1.0-4.8) k/uL PT (9.0-12.0) sec INR (<1.2) Sodium (137-145) mmol/L Chloride (98-107) mmol/L Carbon Dioxide (22-30) mmol/L BUN (9-20) mg/dL Glucose (74-99) mg/dL POC Glucose (mg/dL) 208 H (75-99) mg/dL Plasma Lactic Acid Ulysses (0.7-2.0) mmol/L Calcium (8.4-10.2) mg/dL Total Protein (6.3-8.2) g/dL Albumin (3.5-5.0) g/dL Urine Ketones (Negative) Crossmatch Diabetes panel 02/14/18 02/15/18 Range/Units 12:24 03:57 Sodium 150 H 152 H (137-145) mmol/L Potassium 4.4 3.7 (3.5-5.1) mmol/L Chloride 115 H 122 H* (98-107) mmol/L Carbon Dioxide 17 L 17 L (22-30) mmol/L BUN 41 H 31 H (9-20) mg/dL Creatinine 0.69 0.80 (0.66-1.25) mg/dL Glucose 138 H 171 H (74-99) mg/dL Calcium 8.7 7.6 L (8.4-10.2) mg/dL AST 26 22 (17-59) U/L ALT 25 24 (21-72) U/L Alkaline Phosphatase 86 60 (38-126) U/L Total Protein 6.9 5.1 L (6.3-8.2) g/dL Albumin 3.5 2.4 L (3.5-5.0) g/dL Calcium panel 02/14/18 02/15/18 02/15/18 Range/Units 12:24 03:45 03:57 Calcium 8.7 7.6 L (8.4-10.2) mg/dL Phosphorus 2.8 (2.5-4.5) mg/dL Albumin 3.5 2.4 L (3.5-5.0) g/dL Pituitary panel 02/14/18 02/15/18 Range/Units 12:24 03:57 Sodium 150 H 152 H (137-145) mmol/L Potassium 4.4 3.7 (3.5-5.1) mmol/L Chloride 115 H 122 H* (98-107) mmol/L Carbon Dioxide 17 L 17 L (22-30) mmol/L BUN 41 H 31 H (9-20) mg/dL Creatinine 0.69 0.80 (0.66-1.25) mg/dL Glucose 138 H 171 H (74-99) mg/dL Calcium 8.7 7.6 L (8.4-10.2) mg/dL Adrenal panel 02/14/18 02/15/18 Range/Units 12:24 03:57 Sodium 150 H 152 H (137-145) mmol/L Potassium 4.4 3.7 (3.5-5.1) mmol/L Chloride 115 H 122 H* (98-107) mmol/L Carbon Dioxide 17 L 17 L (22-30) mmol/L BUN 41 H 31 H (9-20) mg/dL Creatinine 0.69 0.80 (0.66-1.25) mg/dL Glucose 138 H 171 H (74-99) mg/dL Calcium 8.7 7.6 L (8.4-10.2) mg/dL Total Bilirubin 0.5 0.3 (0.2-1.3) mg/dL AST 26 22 (17-59) U/L ALT 25 24 (21-72) U/L Alkaline Phosphatase 86 60 (38-126) U/L Total Protein 6.9 5.1 L (6.3-8.2) g/dL Albumin 3.5 2.4 L (3.5-5.0) g/dL Assessment and Plan (1) Duodenal ulcer Narrative/Plan: GI evaluation and management appreciated. Will remain on surgical standby. Current Visit: Yes Status: Acute Code(s): K26.9 - DUODENAL ULCER, UNSP ACUTE OR CHRONIC, W/O HEMOR OR PERF SNOMED Code(s): 99896074
[2018-02-15 14:39] LABS: Anisocytosis Slight; Basophils % (A) 0 %; Eosinophils % (A) 0 %; HCT 24.3 % (39.0-53.0); Lymphocytes # (A) 1.3 k/uL (1.0-4.8); Lymphocytes % (A) 17 %; MCH 29.3 pg (25.0-35.0); MCHC 33.8 g/dL (31.0-37.0); Monocytes # (A) 0.5 k/uL (0-1.0); Monocytes % (A) 7 %; Neutrophils # (A) 5.9 k/uL (1.3-7.7); Neutrophils % (A) 75 %; Platelet Count 128 k/uL (150-450); RDW 17.2 % (11.5-15.5); WBC 7.8 k/uL (3.8-10.6)
[2018-02-15 14:42] LABS: HGB 8.2 gm/dL (13.0-17.5); MCV 86.8 fL (80.0-100.0)
[2018-02-15] MEDS ORDERED: SODIUM CHLORIDE 0.45% 1,000 ML IV SCH (16:30)
--- NOTE | 2018-02-15 17:34 | HP ---
HISTORY AND PHYSICAL DATE OF ADMISSION: February 14, 2018. PRESENTING COMPLAINT: Abdominal pain. HISTORY OF PRESENTING COMPLAINT: This is a 77-year-old patient of Dr. Powell, resident of [facility]. Chronic stable medical conditions include mental retardation with age of a 3rd grader, osteoarthritis, right shoulder rotator cuff injury, depression. The patient presented after having increasing abdominal pain, something frothy coughing/vomiting stuff and some abdominal pain. The patient also had 3 dark stools. Later in the night, the patient started having bloody bowel movements and had to move the patient to the intensive care unit. The patient this morning was taken down for EGD by Dr. Jean Marie Harvey was found to have a superficial duodenal ulcer with a bleeding vessel did get epinephrine cauterization. The patient also found to have some early duodenal stricture. The patient did get 2 units of blood. Hemoglobin did drop down to 6.1. Consultation to Critical Care also was done. REVIEW OF SYSTEMS: Constitutional tired. HEENT none. Respiratory none. Cardiovascular none. Gastrointestinal as above. Genitourinary none. Musculoskeletal some pain in the joints. Dermatological and hematologic, lymphatic none. History of psychiatry. Neurological none. PAST MEDICAL HISTORY: Cerebellar stroke, hypertension, osteoarthritis, barely able to speak. PAST SURGICAL HISTORY: Cataract surgery. PSYCH HISTORY: Of some depression. SOCIAL HISTORY: Resident of [facility]. Does not smoke or drink alcohol. FAMILY HISTORY: Lung cancer. HOME MEDICATIONS: 1. Zoloft 50 mg p.o. daily. 2. Preparation H topical daily p.r.n. 3. Lipitor 40 mg q.h.s. 4. MiraLAX 17 g p.o. q.h.s. 5. Remeron 50 mg q.h.s. 6. Lotrimin AF 1 application topical t.i.d. 7. Claritin 10 mg daily p.r.n. 8. Hydrocortisone 1% topical b.i.d. 9. Vitamin D3 300 p.o. q.h.s. 10.Aspirin 81 mg p.o. daily. 11.Vitamin C 500 mg q.h.s. 12.Tylenol Arthritis 650 mg q.6h p.r.n. ALLERGIES: None. PHYSICAL EXAMINATION: Vital signs this morning, temperature 98.8, pulse 94, respiration 18, blood pressure 135/63, pulse ox 97%. GENERAL: Average build, lying in bed awake. Eyes: Pupils equal. Conjunctivae pale. HEENT: External appearance of nose and ears normal. Oral cavity normal. Neck JVD unable to assess. Mass not palpable. Respiratory effort normal. LUNGS: Clear. Cardiovascular: 1st and 2nd sounds normal. No edema. Abdomen tenderness. No guarding or rigidity. Liver and spleen not palpable. Lymphatics: No lymph nodes palpable in neck or axillae. Psychiatry: Not really able to assess. Neurological: Pupils equal. No facial asymmetry. Moving all 4 limbs. The patient barely speaks. INVESTIGATIONS: Admission labs white count 10.6, hemoglobin 7.5, dropped down to 6.1 after transfusion 8.2, initially it was actually 10.3 on presentation. Sodium 150, chloride 115. ASSESSMENT: 1. Acute severe gastrointestinal bleed, now found to be from bleeding duodenal ulcer in a patient who does take NSAIDs in form of aspirin, status post cauterization. 2. Acute blood loss anemia from above, requiring 2 units of blood. 3. Severe hypernatremia, probably from free water deficit. 4. Chronic mental retardation with mental age of about third grader. 5. Primary osteoarthritis. 6. Depression, not otherwise specified. PLAN: Patient did get 2 units of blood. We will give IV fluids in the form of half saline. H and H will be closely followed. The patient put on clear liquids. The patient is in the ICU. Prognosis is guarded. Copy to Dr. Powell. GETACHEW / MISTY: [id number] /
[2018-02-15] MEDS: DEXTROSE 5% IN WATER 1,000 ML IV SCH (18:01)
[2018-02-15 20:35] LABS: Anisocytosis Slight; Basophils % (A) 0 %; Eosinophils % (A) 0 %; HCT 20.8 % (39.0-53.0); Lymphocytes # (A) 1.8 k/uL (1.0-4.8); Lymphocytes % (A) 20 %; MCHC 33.6 g/dL (31.0-37.0); MCV 86.5 fL (80.0-100.0); Mean Platelet Volume 8.3; Monocytes # (A) 0.5 k/uL (0-1.0); Monocytes % (A) 6 %; Neutrophils # (A) 6.7 k/uL (1.3-7.7); Neutrophils % (A) 73 %; Platelet Count 113 k/uL (150-450); RBC 2.41 m/uL (4.30-5.90); RDW 17.7 % (11.5-15.5); WBC 9.2 k/uL (3.8-10.6)
[2018-02-15] MEDS: ATORVASTATIN 40 MG TAB PO SCH (22:18)
[2018-02-16] MEDS: MIRTAZAPINE 15 MG TAB PO SCH ×2 (00:24→20:37)
[2018-02-16] MEDS: DEXTROSE 5% IN WATER 1,000 ML IV SCH ×3 (01:23→16:55)
[2018-02-16 03:00] LABS: Anisocytosis Slight; Basophils % (A) 0 %; Eosinophils # (A) 0.1 k/uL (0-0.7); Eosinophils % (A) 1 %; HCT 23.6 % (39.0-53.0); HGB 7.7 gm/dL (13.0-17.5); Lymphocytes # (A) 1.8 k/uL (1.0-4.8); Lymphocytes % (A) 25 %; MCH 28.6 pg (25.0-35.0); MCHC 32.7 g/dL (31.0-37.0); MCV 87.3 fL (80.0-100.0); Mean Platelet Volume 9.4; Monocytes # (A) 0.4 k/uL (0-1.0); Monocytes % (A) 6 %; Neutrophils # (A) 4.8 k/uL (1.3-7.7); Neutrophils % (A) 67 %; RDW 17.3 % (11.5-15.5); WBC 7.1 k/uL (3.8-10.6)
[2018-02-16 03:13] LABS: ALT 27 U/L (21-72); AST 48 U/L (17-59); Albumin 2.1 g/dL (3.5-5.0); Alkaline Phosphatase 52 U/L (38-126); Anion Gap 8 mmol/L; Blood Urea Nitrogen 14 mg/dL (9-20); Calcium 7.1 mg/dL (8.4-10.2); Carbon Dioxide 23 mmol/L (22-30); Chloride 112 mmol/L (98-107); Glucose 106 mg/dL (74-99); Magnesium 2.1 mg/dL (1.6-2.3); Phosphorus 2.3 mg/dL (2.5-4.5); Potassium 3.3 mmol/L (3.5-5.1); Sodium 143 mmol/L (137-145); Total Bilirubin 0.6 mg/dL (0.2-1.3); Total Protein 4.4 g/dL (6.3-8.2)
[2018-02-16 03:26] LABS: Platelet Count 95 k/uL (150-450)
[2018-02-16 03:28] LABS: INR 1.2 (<1.2); Partial Thromboplastin Time 23.6 sec (22.0-30.0); Prothrombin Time 11.8 sec (9.0-12.0)
[2018-02-16] MEDS: POTASSIUM CHLORIDE 10 MEQ in WATER FOR INJECTION 1 100ML.BAG IVPB SCH ×2 (06:46→09:02)
--- NOTE | 2018-02-16 07:13 | XR ---
EXAMINATION TYPE: XR chest 1V DATE OF EXAM: 02/16/2018 CLINICAL HISTORY: Difficulty breathing progress study. TECHNIQUE: Single AP portable upright view of the chest is obtained. COMPARISON: Chest x-ray from one day earlier and older studies FINDINGS: There is chronic parenchymal change without suspicious focal airspace opacity, pleural eff usion, or pneumothorax seen bilaterally. Cardiac silhouette size is stable and upper limits of normal . Osseous structures are demineralized. High riding right humeral head consistent with chronic rotato r cuff tear is redemonstrated. IMPRESSION: Overall stable findings, chronic changes without acute pulmonary process.
[2018-02-16] MEDS: PANTOPRAZOLE 40 MG/10 ML VIAL IVP SCH (09:02)
[2018-02-16] MEDS: MICONAZOLE NITRATE 2% CREAM 14 GM TUBE TOPICAL SCH ×3 (09:02→20:37)
[2018-02-16] MEDS: SERTRALINE 50 MG TAB PO SCH (09:03)
[2018-02-16 09:14] LABS: Anisocytosis Slight; Basophils % (A) 0 %; Eosinophils # (A) 0.1 k/uL (0-0.7); Eosinophils % (A) 1 %; HCT 24.5 % (39.0-53.0); Lymphocytes # (A) 1.6 k/uL (1.0-4.8); Lymphocytes % (A) 24 %; MCH 28.5 pg (25.0-35.0); MCHC 32.8 g/dL (31.0-37.0); MCV 86.8 fL (80.0-100.0); Monocytes # (A) 0.4 k/uL (0-1.0); Monocytes % (A) 6 %; Neutrophils # (A) 4.5 k/uL (1.3-7.7); Neutrophils % (A) 68 %; RBC 2.82 m/uL (4.30-5.90); RDW 17.2 % (11.5-15.5); WBC 6.6 k/uL (3.8-10.6)
[2018-02-16 09:33] LABS: Platelet Count 96 k/uL (150-450)
--- NOTE | 2018-02-16 11:20 | P.PN ---
Subjective Progress Note Date: 02/16/18 A 77-year-old male patient, [facility] resident who came into the intensive care unit because of GI bleeding. The patient had abdominal pain and he was found to be profoundly anemic with a hemoglobin of less than 7. The patient has been in the intensive care unit for 24 hours. The patient received a total of 3 units of blood. The patient had an EGD yesterday that showed superficial duodenal ulcer with a red protuberance in the second part of the duodenum which appeared to be the bleeding source and injection with epinephrine was done. He is also early duodenal stricture. The bleeding is controlled for now. The patient is hemodynamically stable on no pressors. The patient is receiving IV fluids in the form of D5W at 1 25 mL an hour. The sodium level was above 150 and it subsequently dropped down to 143. I will switch the patient's IV fluids to D5 half-normal at this point in time. Coags are within normal limits. Note that following his EGD, the patient's hemoglobin dropped again from a baseline of 8.2 and he dropped down to 7 and he received another unit of packed RBC. This occurred during midnight and since then the patient has not had any bloody bowel movements. No hematemesis. No somatic abdominal pain. Family was updated on the condition and the patient's CODE STATUS is DO NOT RESUSCITATE DO NOT INTUBATE. Surgeries also on the case. No plans to undergo any surgical intervention even if needed. Objective - Vital Signs Vital signs: Vital Signs Temp 98.8 F 02/16/18 08:00 Pulse 68 02/16/18 10:00 Resp 22 02/16/18 10:00 BP 97/58 02/16/18 10:00 Pulse Ox 95 02/16/18 10:00 Intake & Output 02/15/18 02/16/18 02/16/18 18:59 06:59 18:59 Intake Total 1931 1310 500 Output Total 1927 406 176 Balance 4 904 324 Intake: IV 975 1000 500 D5W 975 1000 500 Tube Feeding 336 Blood Product 620 310 Rc As-1 Unit 310 [id number] Rc As-1 Unit 310 [id number] Rc As-3 Unit 310 [id number] Output: Urine 1925 400 175 Stool 1 6 1 Urine/Stool Mix 1 Other: Voiding Method Indwelling Catheter Indwelling Catheter Indwelling Catheter # Voids 1 # Bowel Movements 1 - Exam No acute distress, does not respond to verbal stimuli. The patient's pale. HEENT examination is grossly unremarkable. Mucous membranes are moist. No oral lesions. Neck supple. Full range of motion. No adenopathy thyromegaly or neck vein distention. Cardiovascular examination reveals regular rhythm rate. S1-S2 normal. No S3 or S4. No discernible murmur noted. Lungs reveal clear breath sounds. Her sounds are equal bilaterally. No adventitious lung sounds including wheezes rhonchi or crackles. Abdomen soft bowel sounds are heard. There is tenderness on palpation. No masses. Extremities are intact. No cyanosis clubbing or edema. Skin is without rash or lesion. Skin is pale. Neurologic examination is appropriate knowing that he has some underlying deficits which are chronic related to his previous CVA. The patient has expressive aphasia - Labs CBC & Chem 7: 02/16/18 08:55 02/16/18 02:39 Labs: Abnormal Lab Results - Last 24 Hours (Table) 02/15/18 02/15/18 02/15/18 Range/Units 03:57 14:20 20:09 RBC 2.80 L 2.41 L (4.30-5.90) m/uL Hgb 8.2 L D 7.0 L* (13.0-17.5) gm/dL Hct 24.3 L 20.8 L (39.0-53.0) % RDW 17.2 H 17.7 H (11.5-15.5) % Plt Count 128 L 113 L (150-450) k/uL INR (<1.2) Potassium (3.5-5.1) mmol/L Chloride (98-107) mmol/L Glucose (74-99) mg/dL Calcium (8.4-10.2) mg/dL Phosphorus (2.5-4.5) mg/dL Total Protein (6.3-8.2) g/dL Albumin (3.5-5.0) g/dL Crossmatch See Detail 02/16/18 02/16/18 02/16/18 Range/Units 02:39 02:39 02:39 RBC 2.70 L (4.30-5.90) m/uL Hgb 7.7 L (13.0-17.5) gm/dL Hct 23.6 L (39.0-53.0) % RDW 17.3 H (11.5-15.5) % Plt Count 95 L (150-450) k/uL INR 1.2 H (<1.2) Potassium 3.3 L (3.5-5.1) mmol/L Chloride 112 H (98-107) mmol/L Glucose 106 H (74-99) mg/dL Calcium 7.1 L (8.4-10.2) mg/dL Phosphorus 2.3 L (2.5-4.5) mg/dL Total Protein 4.4 L (6.3-8.2) g/dL Albumin 2.1 L (3.5-5.0) g/dL Crossmatch 02/16/18 Range/Units 08:55 RBC 2.82 L (4.30-5.90) m/uL Hgb 8.0 L (13.0-17.5) gm/dL Hct 24.5 L (39.0-53.0) % RDW 17.2 H (11.5-15.5) % Plt Count 96 L (150-450) k/uL INR (<1.2) Potassium (3.5-5.1) mmol/L Chloride (98-107) mmol/L Glucose (74-99) mg/dL Calcium (8.4-10.2) mg/dL Phosphorus (2.5-4.5) mg/dL Total Protein (6.3-8.2) g/dL Albumin (3.5-5.0) g/dL Crossmatch Microbiology - Last 24 Hours (Table) 02/14/18 13:46 Blood Culture - Preliminary Blood No Growth after 24 hours Assessment and Plan Plan: Assessment 1 upper GI bleed secondary to duodenal ulcer, status post endoscopy and epinephrine injection 2 acute blood loss anemia, status post transfusion a total of 3 units of packed RBCs 3 CVA with expressive aphasia 4 chronic anxiety/depression 5 hyperlipidemia 6 hypernatremia, recovered Plan Which this patient IV fluids to D5 half-normal saline at the rate of 75 mL an hour. Obtain another follow-up hemoglobin. If stable the patient can be removed today medical surgical floor. He is on a full liquid diet. He is on IV Protonix 40 mg every 12 hours. We will apply SCDs for DVT prophylaxis. Awaiting follow-up hemoglobin is stable the patient was moved out of the intensive care unit. General surgeries on the case. GI is also on the case.
[2018-02-16 14:25] LABS: Anisocytosis Slight; Basophils % (A) 0 %; Eosinophils # (A) 0.2 k/uL (0-0.7); Eosinophils % (A) 2 %; HCT 23.6 % (39.0-53.0); Lymphocytes # (A) 1.6 k/uL (1.0-4.8); Lymphocytes % (A) 22 %; MCH 28.5 pg (25.0-35.0); MCHC 33.8 g/dL (31.0-37.0); MCV 84.4 fL (80.0-100.0); Mean Platelet Volume 9.9; Monocytes # (A) 0.4 k/uL (0-1.0); Monocytes % (A) 5 %; Neutrophils % (A) 69 %; WBC 7.2 k/uL (3.8-10.6)
[2018-02-16 14:27] LABS: Platelet Count 99 k/uL (150-450)
--- NOTE | 2018-02-16 16:46 | P.PN ---
Subjective Progress Note Date: 02/16/18 Principal diagnosis: GI bleeding Patient seems to be doing well today. Last night he had an episode of hypotension and some black stools. The patient's sister was contacted at that time because there was concern the patient may require surgical intervention. The patient's sister made it clear that they were not interested in surgical treatment of this ulcer even if there were complications. Today's hemoglobin has been stable. He is complaining of mild epigastric pain. Objective - Vital Signs Vital signs: Vital Signs Temp 98.2 F 02/16/18 12:00 Pulse 77 02/16/18 13:00 Resp 23 02/16/18 13:00 BP 96/42 02/16/18 13:00 Pulse Ox 98 02/16/18 13:00 Intake & Output 02/15/18 02/16/18 02/16/18 18:59 06:59 18:59 Intake Total 1931 1310 875 Output Total 1927 406 336 Balance 4 904 539 Intake: IV 975 1000 875 D5W 975 1000 875 Tube Feeding 336 Blood Product 620 310 Rc As-1 Unit 310 [id number] Rc As-1 Unit 310 [id number] Rc As-3 Unit 310 [id number] Output: Urine 1925 400 335 Stool 1 6 1 Urine/Stool Mix 1 Other: Voiding Method Indwelling Catheter Indwelling Catheter Indwelling Catheter # Voids 1 # Bowel Movements 1 - Exam Abdomen: Soft, mild epigastric tenderness, nondistended - Labs CBC & Chem 7: 02/16/18 14:08 02/16/18 02:39 Labs: Abnormal Lab Results - Last 24 Hours (Table) 02/15/18 02/15/18 02/16/18 Range/Units 03:57 20:09 02:39 RBC 2.41 L (4.30-5.90) m/uL Hgb 7.0 L* (13.0-17.5) gm/dL Hct 20.8 L (39.0-53.0) % RDW 17.7 H (11.5-15.5) % Plt Count 113 L (150-450) k/uL INR (<1.2) Potassium 3.3 L (3.5-5.1) mmol/L Chloride 112 H (98-107) mmol/L Glucose 106 H (74-99) mg/dL Calcium 7.1 L (8.4-10.2) mg/dL Phosphorus 2.3 L (2.5-4.5) mg/dL Total Protein 4.4 L (6.3-8.2) g/dL Albumin 2.1 L (3.5-5.0) g/dL Crossmatch See Detail 02/16/18 02/16/18 02/16/18 Range/Units 02:39 02:39 08:55 RBC 2.70 L 2.82 L (4.30-5.90) m/uL Hgb 7.7 L 8.0 L (13.0-17.5) gm/dL Hct 23.6 L 24.5 L (39.0-53.0) % RDW 17.3 H 17.2 H (11.5-15.5) % Plt Count 95 L 96 L (150-450) k/uL INR 1.2 H (<1.2) Potassium (3.5-5.1) mmol/L Chloride (98-107) mmol/L Glucose (74-99) mg/dL Calcium (8.4-10.2) mg/dL Phosphorus (2.5-4.5) mg/dL Total Protein (6.3-8.2) g/dL Albumin (3.5-5.0) g/dL Crossmatch 02/16/18 Range/Units 14:08 RBC 2.80 L (4.30-5.90) m/uL Hgb 8.0 L (13.0-17.5) gm/dL Hct 23.6 L (39.0-53.0) % RDW 17.0 H (11.5-15.5) % Plt Count 99 L (150-450) k/uL INR (<1.2) Potassium (3.5-5.1) mmol/L Chloride (98-107) mmol/L Glucose (74-99) mg/dL Calcium (8.4-10.2) mg/dL Phosphorus (2.5-4.5) mg/dL Total Protein (6.3-8.2) g/dL Albumin (3.5-5.0) g/dL Crossmatch Microbiology - Last 24 Hours (Table) 02/14/18 13:46 Blood Culture - Preliminary Blood No Growth after 48 hours Assessment and Plan (1) Duodenal ulcer Narrative/Plan: Continue advancing diet. Follow hemoglobin. No surgical intervention per family. We'll sign off. Please call if needed. Current Visit: Yes Status: Acute Code(s): K26.9 - DUODENAL ULCER, UNSP ACUTE OR CHRONIC, W/O HEMOR OR PERF SNOMED Code(s): 12305637
[2018-02-16] MEDS: ATORVASTATIN 40 MG TAB PO SCH (20:37)
--- NOTE | 2018-02-16 21:49 | PN ---
PROGRESS NOTE DATE OF SERVICE: 02/16/18 Patient is a 77-year-old white male admitted to the hospital with acute GI bleed. He had an upper endoscopy done yesterday and was noted to have a duodenal ulcer that was cauterized and since then patient has been doing well. No further episodes of bleeding. He dropped his hemoglobin to 7 g last night and so far he received total of 4 units of blood transfusion. He remains stable. No nausea, vomiting. PHYSICAL EXAMINATION: Vital signs are stable. Blood pressure is 93/57, pulse rate 100, temperature 98.2. HEENT examination unremarkable. Conjunctivae pink. Sclerae anicteric. Oral cavity no lesions. Neck: No jugular venous distention or lymph node enlargement. Chest clear to auscultation. HEART: Regular rate and rhythm. ABDOMEN: Soft, bowel sounds are positive. Extremities no pedal edema. Skin no rashes. NEUROLOGIC: Awake, the patient has aphasia. LABORATORY DATA: WBC 6.6, hemoglobin 8, platelets 96,000. INR 1.1, BUN 14, creatinine 0.7. IMPRESSION: Acute upper gastrointestinal bleed secondary to duodenal ulcer, status post EGD with cautery yesterday with good hemostasis. Hemoglobin dropped to 7 and he is status post total of total 4 units of blood transfusion. Currently, no further bleeding. RECOMMENDATIONS: 1. Continue with IV Protonix 40 mg q.12 hours. 2. Continue with a clear liquid diet. 3. CBC every 6 hours and we will follow him closely during his hospital stay. Thank you for this consultation. GETACHEW / MISTY: [id number] /
--- NOTE | 2018-02-16 22:23 | PN ---
PROGRESS NOTE DATE OF SERVICE: February 16, 2018. PRESENTING COMPLAINT: Abdominal pain/slight gastrointestinal bleed. INTERVAL HISTORY: This is a patient who presented with GI bleed, now confirmed to have a duodenal ulcer that was bleeding. Did tolerate a full liquid diet, status post blood transfusion. Abdominal pain is much better in the ICU. REVIEW OF SYSTEMS: The patient does not really communicate much. MEDICATIONS: Current medications are reviewed that include D5W and Protonix. PHYSICAL EXAMINATION: Temperature 98, pulse 71, respiratory 18, blood pressure 99/47, pulse ox 94% on 3 L. GENERAL APPEARANCE: Lying in bed awake. Eyes pupils equal. Conjunctivae pale. HEENT: External appearance of nose and ears normal. Oral cavity normal. Neck JVD not raised. Mass not palpable. Respiratory effort lungs are clear. Cardiovascular 1st and 2nd sounds normal. No edema. ABDOMEN: Soft. No tenderness. No guarding, rigidity. Liver and spleen not palpable. Psychiatry: Following simple commands. INVESTIGATIONS: White count 86.6, hemoglobin 8, platelets 96, potassium 3.3, BUN and creatinine normal. ASSESSMENT: 1. Acute severe gastrointestinal bleed in a patient from bleeding duodenal ulcer status post cauterization. 2. Acute blood loss anemia from above, requiring 2 units of blood. 3. Severe hyponatremia probably from free water deficit, now corrected. 4. Chronic mental retardation. Mental age of about 3rd grader. 5. Primary osteoarthritis. 6. Depression not otherwise specified. PLAN: The patient will be moved out of the ICU the patient is on a full liquid diet. Keep an eye on patient's hemoglobin. Switch the patient to p.o. Protonix. MMODL / IJN: [id number] /
[2018-02-17] MEDS: DEXTROSE 5% IN WATER 1,000 ML IV SCH ×3 (01:22→17:16)
[2018-02-17 08:02] LABS: Anisocytosis Slight; Basophils % (A) 0 %; Eosinophils # (A) 0.1 k/uL (0-0.7); Eosinophils % (A) 2 %; Lymphocytes # (A) 1.3 k/uL (1.0-4.8); Lymphocytes % (A) 24 %; MCHC 33.1 g/dL (31.0-37.0); MCV 87.6 fL (80.0-100.0); Mean Platelet Volume 9.8; Monocytes # (A) 0.3 k/uL (0-1.0); Monocytes % (A) 5 %; Neutrophils # (A) 3.7 k/uL (1.3-7.7); Neutrophils % (A) 67 %; Platelet Count 100 k/uL (150-450); RBC 2.74 m/uL (4.30-5.90); RDW 17.3 % (11.5-15.5); WBC 5.4 k/uL (3.8-10.6)
[2018-02-17 08:42] LABS: Anion Gap 7 mmol/L; Blood Urea Nitrogen 7 mg/dL (9-20); Calcium 7.3 mg/dL (8.4-10.2); Carbon Dioxide 26 mmol/L (22-30); Chloride 108 mmol/L (98-107); Glucose 107 mg/dL (74-99); Magnesium 2.2 mg/dL (1.6-2.3); Phosphorus 2.3 mg/dL (2.5-4.5); Potassium 3.6 mmol/L (3.5-5.1); Sodium 141 mmol/L (137-145)
[2018-02-17] MEDS: PANTOPRAZOLE 40 MG TABLET PO SCH (09:29)
[2018-02-17] MEDS: SERTRALINE 50 MG TAB PO SCH (09:30)
[2018-02-17] MEDS: MICONAZOLE NITRATE 2% CREAM 14 GM TUBE TOPICAL SCH ×3 (09:31→21:12)
--- NOTE | 2018-02-17 10:53 | P.PN ---
Subjective Progress Note Date: 02/17/18 Principal diagnosis: Acute GI bleed 77-year-old male with a history of mental retardation admitted with acute upper GI bleed. Status post EGD with findings of duodenal ulcer status post cautery. No recurrent bleeding. No reports of hematemesis hematochezia melena. Reports mild midepigastric discomfort. Hemoglobin 8.0 unchanged from yesterday. Platelets 100,000. Afebrile. Objective - Vital Signs Vital signs: Vital Signs Temp 99.1 F 02/17/18 07:00 Pulse 73 02/17/18 07:00 Resp 18 02/17/18 07:00 BP 115/55 02/17/18 07:00 Pulse Ox 95 02/17/18 07:00 Intake & Output 02/16/18 02/17/18 02/17/18 18:59 06:59 18:59 Intake Total 875 620 Output Total 336 1000 Balance 539 -380 Intake: IV 875 500 D5W 875 Dextrose 5% in Water 1, 500 000 ml @ 125 mls/hr IV . Q8H TETEEE Rx#:[id number] Oral 120 Output: Urine 335 1000 Stool 1 Other: Voiding Method Indwelling Catheter - Exam General appearance: The patient is alert, oriented, in no acute distress. HET: Head is normocephalic and atraumatic. Pupils are equal and reactive. Oropharynx is clear without lesions. Neck: Supple without lymphadenopathy. Trachea midline. Heart: S1 S2. Regular rate and rhythm. Lungs: No crackles or wheezes are heard. Abdomen: Soft, mild midepigastric tenderness, nondistended with bowel sounds. No peritoneal signs. No palpable organomegaly or masses. Extremities: Normal skin color and turgor. No cyanosis, rash, ulceration, clubbing, or edema. Radial and pedal pulses are 2/4 bilaterally. Neurological: No focal deficits. Strength and sensation are grossly intact. - Labs CBC & Chem 7: 02/17/18 07:40 02/17/18 07:40 Labs: Abnormal Lab Results - Last 24 Hours (Table) 02/15/18 02/16/18 02/17/18 Range/Units 03:57 14:08 07:40 RBC 2.80 L 2.74 L (4.30-5.90) m/uL Hgb 8.0 L 8.0 L (13.0-17.5) gm/dL Hct 23.6 L 24.0 L (39.0-53.0) % RDW 17.0 H 17.3 H (11.5-15.5) % Plt Count 99 L 100 L (150-450) k/uL Chloride (98-107) mmol/L BUN (9-20) mg/dL Glucose (74-99) mg/dL Calcium (8.4-10.2) mg/dL Phosphorus (2.5-4.5) mg/dL Crossmatch See Detail 02/17/18 Range/Units 07:40 RBC (4.30-5.90) m/uL Hgb (13.0-17.5) gm/dL Hct (39.0-53.0) % RDW (11.5-15.5) % Plt Count (150-450) k/uL Chloride 108 H (98-107) mmol/L BUN 7 L (9-20) mg/dL Glucose 107 H (74-99) mg/dL Calcium 7.3 L (8.4-10.2) mg/dL Phosphorus 2.3 L (2.5-4.5) mg/dL Crossmatch Microbiology - Last 24 Hours (Table) 02/14/18 13:46 Blood Culture - Preliminary Blood No Growth after 48 hours Assessment and Plan (1) Duodenal ulcer Current Visit: Yes Status: Acute Code(s): K26.9 - DUODENAL ULCER, UNSP ACUTE OR CHRONIC, W/O HEMOR OR PERF SNOMED Code(s): 67821012 (2) Acute upper GI bleed Current Visit: Yes Status: Acute Code(s): K92.2 - GASTROINTESTINAL HEMORRHAGE, UNSPECIFIED SNOMED Code(s): 38687828 (3) Acute blood loss anemia Current Visit: Yes Status: Acute Code(s): D62 - ACUTE POSTHEMORRHAGIC ANEMIA SNOMED Code(s): 602795469 (4) Mental retardation Current Visit: Yes Status: Chronic Code(s): F79 - UNSPECIFIED INTELLECTUAL DISABILITIES SNOMED Code(s): 853712649 Plan: 1. Full liquid diet advance as tolerated. 2. CBC monitoring. Continue Protonix 40 mg daily. 3. Return to GI office after discharge. 4. Discharge per medicine. Assessment and plan a care discussed with Dr. Harvey
--- NOTE | 2018-02-17 14:55 | PN ---
PROGRESS NOTE DATE OF SERVICE: 02/17/18. PRESENTING COMPLAINT: Abdominal pain. INTERVAL HISTORY: This patient presented with acute abdominal pain, GI bleed. Found to have bleeding duodenal ulcer. Tolerating a full liquid diet. Has had no further bowel movements. Sitting up, comfortable. REVIEW OF SYSTEMS: Attempted. The patient does not really speak except for a few words here and there. CURRENT MEDICATIONS: Reviewed that include p.o. Protonix and IV fluids. PHYSICAL EXAMINATION: Temperature 99.1, pulse 73, respiratory 18, blood pressure 105/55, pulse ox 95% on room air. GENERAL APPEARANCE: Sitting up in a chair, awake and perky. EYES: Pupils equal. Conjunctivae normal.. HEENT: External appearance of nose and ears normal. Oral cavity normal. NECK: JVD not raised. Mass not palpable. RESPIRATORY: Effort, lungs are clear. CARDIOVASCULAR: First and second sounds normal. No edema. ABDOMEN: Soft and nontender. Liver and spleen not palpable. PSYCHIATRY: Awake, following commands. Says a few words. INVESTIGATIONS: Hemoglobin is 8, potassium 3.6. ASSESSMENT: 1. Acute severe GI bleed in a patient from bleeding duodenal ulcer status post cauterization. 2. Acute blood loss anemia from duodenal ulcer requiring 2 units of blood. 3. Severe hypernatremia probably from free water deficit, now corrected. 4. Chronic mental retardation, mental age of about third grader. 5. Primary osteoarthritis. 6. Depression, not otherwise specified. PLAN: Patient will be advanced to soft bland diet. Repeat hemoglobin in the morning. If remains stable probably can be then discharged. MMODL / IJN: [id number] /
--- NOTE | 2018-02-17 16:54 | P.PN ---
Subjective Progress Note Date: 02/17/18 Principal diagnosis: Upper GI bleed secondary to duodenal ulcer, status post endoscopy and epinephrine injection. A 77-year-old male patient, group home resident who came into the intensive care unit because of GI bleeding. The patient had abdominal pain and he was found to be profoundly anemic with a hemoglobin of less than 7. The patient has been in the intensive care unit for 24 hours. The patient received a total of 3 units of blood. The patient had an EGD yesterday that showed superficial duodenal ulcer with a red protuberance in the second part of the duodenum which appeared to be the bleeding source and injection with epinephrine was done. He is also early duodenal stricture. The bleeding is controlled for now. The patient is hemodynamically stable on no pressors. The patient is receiving IV fluids in the form of D5W at 1 25 mL an hour. The sodium level was above 150 and it subsequently dropped down to 143. I will switch the patient's IV fluids to D5 half-normal at this point in time. Coags are within normal limits. Note that following his EGD, the patient's hemoglobin dropped again from a baseline of 8.2 and he dropped down to 7 and he received another unit of packed RBC. This occurred during midnight and since then the patient has not had any bloody bowel movements. No hematemesis. No somatic abdominal pain. Family was updated on the condition and the patient's CODE STATUS is DO NOT RESUSCITATE DO NOT INTUBATE. Surgeries also on the case. No plans to undergo any surgical intervention even if needed. On 02/17/2018 patient seen in follow-up on medical surgical floor. He is currently resting in bed, in no acute distress. He is currently on room air, with a pulse ox at 95%. Afebrile, vital signs are stable. Denies any nausea vomiting, denies any abdominal pain, denies melena, hematemesis. Denies any chest pain, or dyspnea. Today's lab work shows hemoglobin of 8.0, patient has received 3 units of packed red blood cells during this admission. Serum sodium is 141, potassium is 3.6, chloride is 108, BUN is 7, creatinine is 0.67. Patient is tolerating low fiber bland diet, his appetite is fair. No acute events overnight. Room pulmonary/critical care standpoint he remains stable, we will sign off at this time, and follow the patient on as-needed basis. Objective - Vital Signs Vital signs: Vital Signs Temp 99.2 F 02/17/18 14:48 Pulse 79 02/17/18 14:48 Resp 20 02/17/18 14:48 BP 102/55 02/17/18 14:48 Pulse Ox 95 02/17/18 14:48 Intake & Output 02/16/18 02/17/18 02/17/18 18:59 06:59 18:59 Intake Total 875 620 Output Total 336 1000 800 Balance 539 -380 -800 Intake: IV 875 500 D5W 875 Dextrose 5% in Water 1, 500 000 ml @ 125 mls/hr IV . Q8H TEETEE Rx#:[id number] Oral 120 Output: Urine 335 1000 800 Stool 1 0 Other: Voiding Method Indwelling Catheter Urinal Diaper - Exam No acute distress, does not respond to verbal stimuli. The patient's pale. HEENT examination is grossly unremarkable. Mucous membranes are moist. No oral lesions. Neck supple. Full range of motion. No adenopathy thyromegaly or neck vein distention. Cardiovascular examination reveals regular rhythm rate. S1-S2 normal. No S3 or S4. No discernible murmur noted. Lungs reveal clear breath sounds. Her sounds are equal bilaterally. No adventitious lung sounds including wheezes rhonchi or crackles. Abdomen soft bowel sounds are heard. There is tenderness on palpation. No masses. Extremities are intact. No cyanosis clubbing or edema. Skin is without rash or lesion. Skin is pale. Neurologic examination is appropriate knowing that he has some underlying deficits which are chronic related to his previous CVA. The patient has expressive aphasia - Labs CBC & Chem 7: 02/17/18 07:40 02/17/18 07:40 Labs: Abnormal Lab Results - Last 24 Hours (Table) 02/17/18 02/17/18 Range/Units 07:40 07:40 RBC 2.74 L (4.30-5.90) m/uL Hgb 8.0 L (13.0-17.5) gm/dL Hct 24.0 L (39.0-53.0) % RDW 17.3 H (11.5-15.5) % Plt Count 100 L (150-450) k/uL Chloride 108 H (98-107) mmol/L BUN 7 L (9-20) mg/dL Glucose 107 H (74-99) mg/dL Calcium 7.3 L (8.4-10.2) mg/dL Phosphorus 2.3 L (2.5-4.5) mg/dL Microbiology - Last 24 Hours (Table) 02/14/18 13:46 Blood Culture - Preliminary Blood No Growth after 72 hours Assessment and Plan Plan: Assessment: 1 upper GI bleed secondary to duodenal ulcer, status post endoscopy and epinephrine injection 2 acute blood loss anemia, status post transfusion a total of 3 units of packed RBCs 3 CVA with expressive aphasia 4 chronic anxiety/depression 5 hyperlipidemia 6 hypernatremia, recovered Plan Patient remains stable, vital signs are stable, he is tolerating low residue bland diet, has not had any recurrence of GI bleeding. No reports of hematemesis, hematochezia or melena. Hemoglobin is 8.0. Patient vital signs are stable. Pulmonary/critical care standpoint patient is stable, we will sign off at this time, and follow the patient on as-needed basis. Thank you for this consultation. I performed a history & physical examination of the patient and discussed their management with my nurse practitioner, Xenia Nunez. I reviewed the nurse practitioner's note and agree with the documented findings and plan of care. Lung sounds are clear. The findings and the impression was discussed with the patient. I attest to the documentation by the nurse practitioner. Time with Patient: Less than 30
[2018-02-17] MEDS: POTAS-SOD-PHOS 278-164-250 MG 1 EACH PACKET PO SCH ×3 (17:21→21:13)
[2018-02-17] MEDS: ATORVASTATIN 40 MG TAB PO SCH (21:12)
[2018-02-17] MEDS: ACETAMINOPHEN TAB 325 MG TAB PO PRN (21:12)
[2018-02-17] MEDS: MIRTAZAPINE 15 MG TAB PO SCH (21:12)
[2018-02-18] MEDS: DEXTROSE 5% IN WATER 1,000 ML IV SCH ×2 (01:00→08:16)
[2018-02-18] MEDS: POTAS-SOD-PHOS 278-164-250 MG 1 EACH PACKET PO SCH (08:04)
[2018-02-18] MEDS: SERTRALINE 50 MG TAB PO SCH (08:04)
[2018-02-18] MEDS: PANTOPRAZOLE 40 MG TABLET PO SCH (08:04)
[2018-02-18] MEDS: MICONAZOLE NITRATE 2% CREAM 14 GM TUBE TOPICAL SCH (08:04)
[2018-02-18] MEDS: ACETAMINOPHEN TAB 325 MG TAB PO PRN ×2 (08:11→16:20)
[2018-02-18 08:18] VITALS: BP 118/58; PULSE 77; RESP 18; TEMP 99.5
[2018-02-18 08:20] LABS: Anisocytosis Slight; Basophils % (A) 1 %; Eosinophils # (A) 0.1 k/uL (0-0.7); Eosinophils % (A) 2 %; HGB 8.7 gm/dL (13.0-17.5); Lymphocytes # (A) 0.9 k/uL (1.0-4.8); Lymphocytes % (A) 15 %; MCH 28.6 pg (25.0-35.0); MCHC 32.3 g/dL (31.0-37.0); MCV 88.7 fL (80.0-100.0); Mean Platelet Volume 9.2; Monocytes # (A) 0.3 k/uL (0-1.0); Monocytes % (A) 5 %; Neutrophils # (A) 4.5 k/uL (1.3-7.7); Neutrophils % (A) 77 %; Platelet Count 118 k/uL (150-450); RBC 3.05 m/uL (4.30-5.90); RDW 17.4 % (11.5-15.5); WBC 5.9 k/uL (3.8-10.6)
[2018-02-18 08:40] LABS: Anion Gap 9 mmol/L; Blood Urea Nitrogen 8 mg/dL (9-20); Calcium 7.8 mg/dL (8.4-10.2); Carbon Dioxide 27 mmol/L (22-30); Chloride 108 mmol/L (98-107); Glucose 109 mg/dL (74-99); Magnesium 2.3 mg/dL (1.6-2.3); Phosphorus 2.9 mg/dL (2.5-4.5); Potassium 4.4 mmol/L (3.5-5.1); Sodium 144 mmol/L (137-145)
--- NOTE | 2018-02-18 15:47 | DS ---
DISCHARGE SUMMARY DATE OF ADMISSION: 02/14/18. DATE OF DISCHARGE: 02/18/18 FINAL DIAGNOSES: 1. Acute severe gastrointestinal bleed from duodenal ulcer. 2. Acute blood loss anemia from duodenal ulcer requiring 2 units of blood. 3. Severe hypernatremia from free water deficit present on admission now corrected. 4. Chronic mental retardation: Mental age of about 3rd grader. The patient does speak a few words. 5. Primary osteoarthritis. 6. Depression, not otherwise specified. HOSPITAL COURSE: This patient presented with GI bleed with bloody bowel movements. EGD did show duodenal ulcer with probably a bleeder. Cauterization was carried out. No further bleeding. Hemoglobin today was 8.7. On examination, abdomen soft, nontender. The patient can say a few words here and there. DISCHARGE MEDICATIONS: 1. Vitamin C 500 units p.o. q.h.s. 2. Vitamin D3 2000 units p.o. q.h.s. 3. Vitamin B complex 1 capsule p.o. q.h.s. 4. Tylenol Arthritis to be discontinued. 5. Aspirin discontinued. 6. Lipitor 40 mg q.h.s. 7. Hydrocortisone 1% topical b.i.d. p.r.n. 8. Claritin 10 mg a day p.r.n. 9. Lotrimin AF 1 application topical t.i.d. 10.Preparation H topical rectal p.r.n. 11.MiraLAX 17 g p.o. q.h.s. 12.Zoloft 50 mg p.o. daily. 13.Remeron 50 mg q.h.s. 14.Protonix 40 mg a day. DISPOSITION: [facility]. FOLLOWUP: Follow up with Dr. Powell there. Follow up with Dr. Zabrina Harvey on 04/15/2018. CBC in [address] Powell. MMODL / IJN: [id number] /
== END 2018-02-18 16:55 | DRG 378 ==
LOC: EC 12:00 → OBSVTOIN 16:20 → EEVIPCON 16:20 → 3SUR 16:20 → 4MS4W 21:10 → 6ICU 02-15 04:31 → 5MS5E 02-16 18:20
PROVIDERS: ADMIT Hospitalist; ATTEND Hospitalist
PROC: 0W3P8ZZ Control Bleeding in Gastrointestinal Tract, Via Natural or Artificial Opening Endoscopic (ICD-10-PCS; principal; 2018-02-15 10:00)
PROC: 30233N1 Transfusion of Nonautologous Red Blood Cells into Peripheral Vein, Percutaneous Approach (ICD-10-PCS; 2018-02-15 10:00)
DX: K26.0 Acute duodenal ulcer with hemorrhage (principal); D62 Acute posthemorrhagic anemia; E87.0 Hyperosmolality and hypernatremia; I95.9 Hypotension, unspecified; E87.2 Acidosis; K31.5 Obstruction of duodenum; I69.320 Aphasia following cerebral infarction; E86.0 Dehydration; I69.328 Other speech and language deficits following cerebral infarction; R40.2362 Coma scale, best motor response, obeys commands, at arrival to emergency department; R40.2142 Coma scale, eyes open, spontaneous, at arrival to emergency department; R40.2242 Coma scale, best verbal response, confused conversation, at arrival to emergency department; F80.1 Expressive language disorder; Z66 Do not resuscitate; E78.5 Hyperlipidemia, unspecified; K44.9 Diaphragmatic hernia without obstruction or gangrene; I10 Essential (primary) hypertension; M19.91 Primary osteoarthritis, unspecified site; K59.00 Constipation, unspecified; K40.90 Unilateral inguinal hernia, without obstruction or gangrene, not specified as recurrent; J30.9 Allergic rhinitis, unspecified; F41.9 Anxiety disorder, unspecified; F32.9 Major depressive disorder, single episode, unspecified; F79 Unspecified intellectual disabilities; Z79.82 Long term (current) use of aspirin; Z79.899 Other long term (current) drug therapy; Z98.49 Cataract extraction status, unspecified eye
CPT/HCPCS: 36415; 43243; 43255; 71045; 71046; 74018; 74177; 80048; 80053; 81003; 82150; 82272; 82550; 82553; 83605; 83690; 83735; 83880; 84100; 84484; 85025; 85027; 85379; 85610; 85730; 86850; 86900; 86901; 86920; 87040; 94760; 96361; 96374; 99285

== ENCOUNTER 2020-03-04 22:22 | Emergency (ER) | payer MEDICARE, OTHER ==
[2020-03-04 22:31] VITALS: TEMP 98.4
[2020-03-04] MEDS ORDERED: Acetaminophen-Codeine 300-30mg TAB PO STA (22:51)
--- NOTE | 2020-03-04 23:24 | CT ---
EXAMINATION TYPE: CT brain luisa head con DATE OF EXAM: 03/04/2020 COMPARISON: None HISTORY: head and neck pain after fall. CT DLP: 1321.60 mGycm Automated exposure control for dose reduction was used. Exam performed with no contrast. There is some cerebral cortical atrophy. There is no mass effect nor midline shift. There is no sign of intracranial hemorrhage. There is left occipital scalp hematoma. This measures up to 1 cm. The sku ll base is intact. Cervical vertebra have normal alignment. There is degenerative disc space narrowing from C3 to C6. Th ere is mild spurring of the endplates. Facet joints appear intact. There is mucus retention cyst in t he right maxillary sinus. IMPRESSION: Mild multilevel cervical spondylotic changes. No fracture. Mild cerebral atrophy. No acute intracranial abnormality.
--- NOTE | 2020-03-04 23:26 | XR ---
EXAMINATION TYPE: XR chest 2V DATE OF EXAM: 03/04/2020 COMPARISON: 02/16/2018 HISTORY: Short of breath TECHNIQUE: FINDINGS: There is no heart failure nor confluent pneumonic infiltrate. Costophrenic angles are clear . Heart size is normal. There is some spurring in the thoracic spine. There is no pleural effusion. T here is some arthritic change in the right shoulder joint. IMPRESSION: No active cardiopulmonary disease. No change.
--- NOTE | 2020-03-04 23:27 | XR ---
EXAMINATION TYPE: XR shoulder complete LT DATE OF EXAM: 03/04/2020 COMPARISON: NONE HISTORY: Pain. TECHNIQUE: 3 views FINDINGS: There is no fracture nor dislocation. There is spurring at the inferior glenoid labrum. The re is minor spurring at the AC joint. Glenohumeral joint is anatomic. IMPRESSION: Degenerative mild hypertrophic spurring. No fracture seen.
--- NOTE | 2020-03-04 23:43 | ED ---
Fall HPI - General Chief Complaint: Fall Stated Complaint: fall Time Seen by Provider: 03/04/20 22:24 Source: patient, EMS, RN notes reviewed, old records reviewed Mode of arrival: EMS Limitations: no limitations - History of Present Illness MD Complaint: fall -: hour(s) Fall From: standing When Fall Occurred: 1-3 hours ERP MANAGER Fall Witnessed: yes, by family Place Fall Occurred: home Loss of Consciousness: none Prolonged Down Time?: no Symptoms Prior to Fall: none Location: neck Location - Extremities: Right: Shoulder Severity: mild Severity scale (1-10): 2 Quality: aching Context: tripped/slipped Associated Symptoms: denies - Related Data Home Medications Medication Instructions Recorded Confirmed Ascorbic Acid [Vitamin C] 500 mg PO HS 06/15/15 02/14/18 Cholecalciferol [Vitamin D3 (25 3,000 unit PO HS 06/15/15 02/14/18 Mcg = 1000 Iu)] Vitamin B Complex 1 cap PO HS 06/15/15 02/14/18 Atorvastatin [Lipitor] 40 mg PO HS 02/14/18 02/14/18 Hydrocortisone Cream 1 applic TOPICAL BID PRN 02/14/18 02/14/18 [Hydrocortisone 1% Cream] Loratadine [Claritin] 10 mg PO DAILY PRN 02/14/18 02/14/18 Miconazole Nitrate [Lotrimin AF 1 applic TOPICAL TID 02/14/18 02/14/18 Powder] Phenyleph/Pramoxin/Glycr/W.pet 1 applic RECTAL DAILY PRN 02/14/18 02/14/18 [Preparation H Cream] Polyethylene Glycol 3350 [Miralax] 17 gm PO HS 02/14/18 02/14/18 Sertraline [Zoloft] 50 mg PO DAILY@0800 02/14/18 02/14/18 Previous Rx's Medication Instructions Recorded Mirtazapine [Remeron] 15 mg PO HS #7 tab 02/18/18 Pantoprazole [Protonix] 40 mg PO AC-[id number] tablet. 02/18/18 Allergies Allergy/AdvReac Type Severity Reaction Status Date / Time No Known Allergies Allergy Verified 02/14/18 12:19 Review of Systems ROS Statement: Those systems with pertinent positive or pertinent negative responses have been documented in the HPI. ROS Other: All systems not noted in ROS Statement are negative. 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, comprehends at 3rd grade level per family, vertigo History of Any Multi-Drug Resistant Organisms: None Reported Past Surgical History: No Surgical Hx Reported Additional Past Surgical History / Comment(s): cataract surgery Past Anesthesia/Blood Transfusion Reactions: No Reported Reaction Past Psychological History: Anxiety, Depression Smoking Status: Never smoker - Past Family History Sister(s) Family Medical History: Cancer Additional Family Medical History / Comment(s): lung cancer Brother(s) Family Medical History: Cancer Additional Family Medical History / Comment(s): esophageal cancer, cerebral palsy Father Family Medical History: Myocardial Infarction (NH) General Exam Limitations: language barrier General appearance: alert, in no apparent distress Head exam: Present: atraumatic, normocephalic, normal inspection Eye exam: Present: normal appearance, PERRL, EOMI. Absent: scleral icterus, conjunctival injection, periorbital swelling ENT exam: Present: normal exam, mucous membranes moist Neck exam: Present: normal inspection. Absent: tenderness, meningismus, lymphadenopathy Respiratory exam: Present: normal lung sounds bilaterally. Absent: respiratory distress, wheezes, rales, rhonchi, stridor Cardiovascular Exam: Present: regular rate, normal rhythm, normal heart sounds. Absent: systolic murmur, diastolic murmur, rubs, gallop, clicks GI/Abdominal exam: Present: soft, normal bowel sounds. Absent: distended, tenderness, guarding, rebound, rigid Extremities exam: Present: normal inspection, full ROM, normal capillary refill. Absent: tenderness, pedal edema, joint swelling, calf tenderness Back exam: Present: normal inspection Neurological exam: Present: alert, oriented X3, CN II-XII intact Psychiatric exam: Present: normal affect, normal mood Skin exam: Present: warm, dry, intact, normal color. Absent: rash Course Vital Signs 03/04/20 03/04/20 22:23 23:48 Temperature 98.4 F Pulse Rate 73 65 Respiratory 18 181 H Rate Blood Pressure 154/75 138/70 O2 Sat by Pulse 98 97 Oximetry Disposition Clinical Impression: Frequent falls, Fall Disposition: HOME SELF-CARE Condition: Good Instructions (If sedation given, give patient instructions): Fall Prevention for Older Adults (ED) Is patient prescribed a controlled substance at d/c from ED?: No Referrals: Layo Powell DO [Primary Care Provider] - 1-2 days
[2020-03-04 23:49] VITALS: BP 138/70; PULSE 65; RESP 181
== END 2020-03-05 00:29 | disposition home or self-care (01) ==
LOC: EC 22:22
DX: R29.6 Repeated falls (principal); F41.9 Anxiety disorder, unspecified; F32.9 Major depressive disorder, single episode, unspecified; Z86.73 Personal history of transient ischemic attack (TIA), and cerebral infarction without residual deficits; Z79.899 Other long term (current) drug therapy; W01.0XXA Fall on same level from slipping, tripping and stumbling without subsequent striking against object, initial encounter; Y92.009 Unspecified place in unspecified non-institutional (private) residence as the place of occurrence of the external cause
CPT/HCPCS: 70450; 71046; 72125; 99284